=== PATIENT | female | born 1995 | race Caucasian/White ===

== ENCOUNTER → 2021-06-30 | Outpatient (CLI) | payer BC | LOC: M WHC 13:23 | PROVIDERS: ATTEND Obstetrics & Gynecology | DX: O34.211 Maternal care for low transverse scar from previous cesarean delivery (principal); Z3A.19 19 weeks gestation of pregnancy ==

== ENCOUNTER → 2021-08-27 | Outpatient (CLI) | payer BC ==
[2021-08-27 15:23] LABS: HEMATOCRIT 36.3 % (36.0-47.0); HEMOGLOBIN 11.9 g/dl (12.0-15.5); MEAN CORPUSCULAR HEMOGLOBIN 29.4 pg (27.0-33.0); MEAN CORPUSCULAR HGB CONC 32.8 g/dl (32.0-36.5); MEAN CORPUSCULAR VOLUME 89.6 fl (80.0-96.0); PLATELET COUNT, AUTOMATED 256 10^3/uL (150-450); RED BLOOD COUNT 4.05 10^6/uL (4.00-5.40); WHITE BLOOD COUNT 11.9 10^3/uL (4.0-10.0)
== END ==
LOC: M PLALAB 13:33
PROVIDERS: ATTEND Obstetrics & Gynecology
DX: Z36.89 Encounter for other specified antenatal screening (principal); O34.211 Maternal care for low transverse scar from previous cesarean delivery

== ENCOUNTER → 2021-09-13 | Outpatient (CLI) | payer BC | LOC: M LAB 08:23 | PROVIDERS: ATTEND Obstetrics & Gynecology | DX: R73.09 Other abnormal glucose (principal) ==

== ENCOUNTER → 2021-11-03 | Outpatient (REF) | payer BC | LOC: M SFHCWAGY 13:03 | PROVIDERS: ATTEND Specialist | DX: Z34.83 Encounter for supervision of other normal pregnancy, third trimester (principal) ==

== ENCOUNTER → 2021-11-16 | Outpatient (CLI) | payer BC | LOC: M WHC 06:56 | PROVIDERS: ATTEND Advanced Practice Midwife | DX: Z36.2 Encounter for other antenatal screening follow-up (principal); O26.849 Uterine size-date discrepancy, unspecified trimester; Z3A.38 38 weeks gestation of pregnancy ==

== ENCOUNTER 2021-11-23 07:52 | Inpatient (IN) | payer BC ==
[2021-11-23] VITALS (48 sets, daily range): BP systolic 85–154; BP diastolic 45–101
[~2021-11-23] VITALS: Ht 165.1 cm; Wt 75.4 kg
[2021-11-23] MEDS ORDERED: PRENTAB9 PO (08:42)
[2021-11-23] MEDS ORDERED: OXYTOCIN DRIP 30 UNITS in IV 1 EA IV SCH (08:50)
[2021-11-23] MEDS ORDERED: HOME MED LIST COMPLETE! XX SCH (09:40)
[2021-11-23] MEDS: LR 1,000 ML IV SCH ×4 (09:43→23:04)
[2021-11-23 09:44] LABS: HEMATOCRIT 36.7 % (36.0-47.0); MEAN CORPUSCULAR HEMOGLOBIN 28.6 pg (27.0-33.0); MEAN CORPUSCULAR HGB CONC 32.7 g/dl (32.0-36.5); MEAN CORPUSCULAR VOLUME 87.6 fl (80.0-96.0); PLATELET COUNT, AUTOMATED 250 10^3/uL (150-450); RED BLOOD COUNT 4.19 10^6/uL (4.00-5.40); WHITE BLOOD COUNT 10.1 10^3/uL (4.0-10.0)
[2021-11-23] MEDS ORDERED: FENTANYL 2MCG/ML ROPIVACAINE 0.2% IN 0.9% NACL 100ML IVBAG As Ordered ONE (20:14)
[2021-11-23] MEDS ORDERED: LR 500 ML IV PRN (20:20)
[2021-11-23] MEDS ORDERED: EPIDURAL/PCA KEYS XX PRN (20:20)
[2021-11-23] MEDS ORDERED: ONDANSETRON 4MG 2ML VIAL IV PRN (20:20)
[2021-11-23] MEDS ORDERED: FENTANYL/ROPIVACAINE/NACL BAG 100 ML EPIDURAL SCH (20:20)
[2021-11-23] MEDS ORDERED: diphenhydrAMINE 50MG/ML VIAL (J1200) IV PRN (20:20)
[2021-11-23] MEDS ORDERED: NALOXONE INJ 0.4MG/1ML VIAL (J2310 PER 1MG) IV PRN (20:20)
[2021-11-23] MEDS: ePHEDrine SULFATE 25 MG/5 ML(5MG/ML) SYRINGE IVP PRN ×3 (23:02→23:09)
[2021-11-24] VITALS (7 sets, daily range): BP systolic 98–125; BP diastolic 52–71
[2021-11-24] MEDS ORDERED: METHYLERGONOVINE MALEATE 0.2 MG TAB PO PRN (00:50)
[2021-11-24] MEDS ORDERED: DIBUCAINE 1% OINTMENT 30GM TOP PRN (00:50)
[2021-11-24] MEDS ORDERED: ACETAMINOPHEN 500 MG TAB PO PRN (00:50)
[2021-11-24] MEDS ORDERED: IBUPROFEN 800 MG TAB PO PRN (00:50)
[2021-11-24] MEDS ORDERED: RHOGAM 300 MCG (1500 IU) INJ (J2790) IM SCH (00:50)
[2021-11-24] MEDS ORDERED: DOCUSATE SODIUM 100MG CAPSULE PO PRN (00:50)
[2021-11-24] MEDS ORDERED: OXYTOCIN DRIP 30 UNITS in IV 1 EA IV ONE (00:50)
[2021-11-24] MEDS: PRENATAL VITAMINS CHEWABLE TABLET PO SCH (08:28)
[2021-11-24] MEDS: IBUPROFEN 600MG TAB PO PRN ×2 (08:28→14:13)
[2021-11-24] MEDS: ACETAMINOPHEN TAB 650MG DOSE (2X325MG) PO PRN (14:13)
[2021-11-25 06:00] VITALS: BP 117/78
[2021-11-25] MEDS: PRENATAL VITAMINS CHEWABLE TABLET PO SCH (08:43)
[2021-11-25] MEDS: ACETAMINOPHEN TAB 650MG DOSE (2X325MG) PO PRN (08:44)
[2021-11-25] MEDS ORDERED: COLA100C5 PO (09:33)
[2021-11-25] MEDS ORDERED: ACET-683 PO (09:33)
[2021-11-25] MEDS ORDERED: IBUP-1022 PO (09:33)
[2021-11-26] MEDS ORDERED: MEASLES,MUMPS,RUBELLA VACCINE INJ (MMR-II) (90707) SC.IMMUN ONE (09:00)
== END 2021-11-25 17:30 | disposition home or self-care (01) | DRG 560 ==
LOC: M LDI 07:52 → M OBS 11-24 02:23
PROVIDERS: ADMIT Specialist; ATTEND Specialist
PROC: 10E0XZZ Delivery of Products of Conception, External Approach (ICD-10-PCS; principal; 2021-11-24)
PROC: 10907ZC Drainage of Amniotic Fluid, Therapeutic from Products of Conception, Via Natural or Artificial Opening (ICD-10-PCS; 2021-11-24)
DX: O34.211 Maternal care for low transverse scar from previous cesarean delivery (principal); Z3A.39 39 weeks gestation of pregnancy; Z37.0 Single live birth

== ENCOUNTER → 2023-02-06 | Outpatient (REF) | payer BC, OTHER ==
[~2023-02-06] MED LIST: ACET-683 PO; COLA100C5 PO; IBUP-1022 PO; PRENTAB9 PO
[2023-02-06 17:58] LABS: BASO # 0.1 10^3/uL (0.0-0.2); BASO % 0.8 % (0.0-1.0); EOS # 0.2 10^3/uL (0.0-0.5); EOS % 2.1 % (0.0-3.0); HEMATOCRIT 41.1 % (36.0-47.0); HEMOGLOBIN 13.4 g/dl (12.0-15.5); LYMPH # 2.8 10^3/uL (1.5-5.0); MEAN CORPUSCULAR HEMOGLOBIN 29.5 pg (27.0-33.0); MEAN CORPUSCULAR HGB CONC 32.6 g/dl (32.0-36.5); MEAN CORPUSCULAR VOLUME 90.5 fl (80.0-96.0); MONO # 0.6 10^3/uL (0.0-0.8); NEUTROPHILS # 3.8 10^3/uL (1.5-8.5); PLATELET COUNT, AUTOMATED 321 10^3/uL (150-450); RED BLOOD COUNT 4.54 10^6/uL (4.00-5.40); WHITE BLOOD COUNT 7.5 10^3/uL (4.0-10.0)
[2023-02-06 18:14] LABS: ALBUMIN 4.1 G/DL (3.2-5.2); ALKALINE PHOSPHATASE 56 U/L (46-116); ALT/SGPT 15 U/L (7.0-40); AST/SGOT 12 U/L (<34); BILIRUBIN,TOTAL 0.4 MG/DL (0.3-1.2); BLOOD UREA NITROGEN 10 MG/DL (9-23); CALCIUM LEVEL 8.9 MG/DL (8.5-10.1); CARBON DIOXIDE LEVEL 28 MMOL/L (20-31); CHLORIDE LEVEL 108 MMOL/L (98-107); CREATININE FOR GFR 0.67 MG/DL (0.55-1.30); GLOMERULAR FILTRATION RATE > 60.0 (>60); GLUCOSE, FASTING 78 MG/DL (60-100); POTASSIUM SERUM 4.1 MMOL/L (3.5-5.1); SODIUM LEVEL 144 MMOL/L (136-145); TOTAL PROTEIN 7.4 G/DL (5.7-8.2)
[2023-02-06 18:16] LABS: FREE T4 1.08 NG/DL (0.89-1.76); THYROID STIMULATING HORMONE 1.033 uIU/ML (0.55-4.78)
== END ==
LOC: M LABDRAWP 17:25
PROVIDERS: ATTEND Family Medicine
DX: F41.9 Anxiety disorder, unspecified (principal)

== ENCOUNTER → 2023-07-10 | Outpatient (REF) | payer BC, OTHER | LOC: M SFHCWAGY 17:41 | PROVIDERS: ATTEND Advanced Practice Midwife | DX: Z12.4 Encounter for screening for malignant neoplasm of cervix (principal) | CPT/HCPCS: 87624; G0123 ==

== ENCOUNTER 2023-08-18 07:28 | Day surgery (SDC) | payer OTHER ==
[~2023-08-18] VITALS: Ht 165.1 cm; Wt 65.3 kg
[~2023-08-18 07:28] MED LIST changes: +LEXA1TAB PO
[2023-08-18] MEDS ORDERED: ROCURONIUM BROMIDE 50MG/5ML VIAL As Ordered ONE (07:51)
[2023-08-18] MEDS ORDERED: propofoL 200 MG/20 ML VIAL As Ordered ONE (07:51)
[2023-08-18] MEDS ORDERED: ONDANSETRON 4MG 2ML VIAL As Ordered ONE (07:51)
[2023-08-18] MEDS ORDERED: LIDOCAINE 2% 100MG/5ML SDV (FOR ANES.) As Ordered ONE (07:51)
[2023-08-18] MEDS ORDERED: SUGAMMADEX SODIUM 500 MG/5 ML VIAL (BRIDION) As Ordered ONE (07:51)
[2023-08-18] MEDS ORDERED: KETOROLAC 60MG 2ML VIAL As Ordered ONE (07:51)
[2023-08-18 07:55] LABS: HEMATOCRIT 40.1 % (36.0-47.0); HEMOGLOBIN 13.3 g/dl (12.0-15.5); MEAN CORPUSCULAR HGB CONC 33.2 g/dl (32.0-36.5); MEAN CORPUSCULAR VOLUME 90.5 fl (80.0-96.0); PLATELET COUNT, AUTOMATED 252 10^3/uL (150-450); RED BLOOD COUNT 4.43 10^6/uL (4.00-5.40); WHITE BLOOD COUNT 6.1 10^3/uL (4.0-10.0)
[2023-08-18] MEDS ORDERED: MIDAZOLAM INJ 2MG/2ML VIAL As Ordered ONE (07:56)
[2023-08-18] MEDS ORDERED: fentaNYL 100 MCG/2 ML INJECTION As Ordered ONE (07:56)
[2023-08-18] MEDS: LR 1,000 ML IV SCH (08:20)
[2023-08-18] MEDS ORDERED: MEPERIDINE 25 MG/ML 1ML VIAL IV PRN (10:50)
[2023-08-18] MEDS ORDERED: diphenhydrAMINE 50MG/ML VIAL IV PRN (10:50)
[2023-08-18] MEDS ORDERED: LR 1,000 ML IV SCH (10:50)
[2023-08-18] MEDS ORDERED: fentaNYL 100 MCG/2 ML INJECTION IV PRN (10:50)
[2023-08-18] MEDS: HYDROMORPHONE HCL 0.5 MG/ 0.5 ML SYRINGE IV PRN (11:22)
[2023-08-18] MEDS: ONDANSETRON 4MG 2ML VIAL IV PRN (11:31)
[2023-08-18] MEDS: METOCLOPRAMIDE INJ 10MG/2ML VIAL IV PRN (11:31)
[2023-08-18] MEDS: oxyCODONE 5MG TAB PO PRN (11:32)
[2023-08-18 12:25] VITALS: BP 111/61; TEMP 98.2; O2SAT 100
[2023-08-18] MEDS ORDERED: PERCOCET 5MG/325MG TAB PO PRN (12:50)
[2023-08-18] MEDS ORDERED: KETOROLAC 30 MG/ML 1ML VIAL IV SCH (17:00)
== END 2023-08-18 12:45 | disposition home or self-care (01) ==
LOC: M SDC 07:28
PROVIDERS: ATTEND Obstetrics & Gynecology
DX: Z30.2 Encounter for sterilization (principal); K66.0 Peritoneal adhesions (postprocedural) (postinfection); F41.9 Anxiety disorder, unspecified; Z79.899 Other long term (current) drug therapy
CPT/HCPCS: 36415; 58661; 81025; 85027; 86850; 86900; 86901; 88302; J0665; J1100; J1170; J1885; J2250; J2405; J2765; J3010

== ENCOUNTER 2024-10-29 08:16 | Day surgery (SDC) | payer OTHER ==
[~2024-10-29] VITALS: Ht 165.1 cm; Wt 64.4 kg
[~2024-10-29 08:16] MED LIST changes: +PANT40TA29 PO
[2024-10-29] MEDS ORDERED: LIDOCAINE 2% 100 MG/5 ML SDV (FOR ANES.) As Ordered ONE (10:16)
[2024-10-29 10:35] VITALS: TEMP 98.6
[2024-10-29 11:05] VITALS: BP 104/65; O2SAT 98
== END 2024-10-29 11:10 | disposition home or self-care (01) ==
LOC: M OPP 08:16
PROVIDERS: ATTEND Surgery
DX: R12 Heartburn (principal); Z91.013 Allergy to seafood; Z91.018 Allergy to other foods; Z79.899 Other long term (current) drug therapy
CPT/HCPCS: 43235; J3010